=== PATIENT | female | born 1935 | race Caucasian/White ===

== ENCOUNTER 2025-01-27 00:45 | Emergency (ER) | payer OTHER ==
[~2025-01-27] VITALS: Wt 74.5 kg
[~2025-01-27 00:45] MED LIST: FUROSEMIDE20 M1 PO; LOPRESSOR50 M1 PO; MUCUS RELIEF E600 MG PO; TAMIFLU30 MG PO; VAZALORE81 MG PO; VITAMIN D31250 MCG PO
[2025-01-27] MEDS ORDERED: POTASSIUM CHLO20 ME3 PO (00:53)
[2025-01-27] MEDS ORDERED: VITAMIN C500 M6 PO (00:53)
[2025-01-27] MEDS ORDERED: MIRALAX119 GM PO (00:55)
[2025-01-27 02:00] LABS: BASO # 0.0 10*3/uL (0.0-0.1); BASO % 0.6 % (0.0-1.0); EOS # 0.1 10*3/uL (0.0-0.4); EOS % 1.1 % (1.0-4.0); MEAN CELL VOLUME 94.0 fl (81.0-99.0); MEAN CORPUSCULAR HGB 28.4 pg (27.0-31.0); MEAN PLATELET VOLUME 11.1 fl (9.6-12.3); MONO # 0.7 10*3/uL (0.1-1.0); MONO % 10.0 % (3.0-9.0); NEUT # 5.1 10*3/uL (2.3-7.9); NEUT % 72.4 % (47.0-73.0); NUCLEATED RED BLOOD CELL 0.0 % (0.0-0.0); NUCLEATED RED BLOOD CELL 0.0 10*3/uL (0.0-0.0); PLATELET COUNT AUTOMATED 213 10*3/uL (130-400); RED CELL DISTRI WIDTH 16.0 % (0-14.5)
[2025-01-27 02:44] LABS: BUN 44 mg/dl (9-23); SGPT/ALT < 7 U/L (5-49)
[2025-01-27] MEDS ORDERED: SODIUM CHLORIDE 0.9% 1,000 ML IV ONE (03:20)
[2025-01-27] MEDS ORDERED: Metoclopramide Hydrochloride 10 MG/2 ML VIAL IV ONE (03:20)
[2025-01-27 04:02] LABS: BILIRUBIN Negative (Negative); BLOOD 2+ (Negative); CLARITY Clear (Clear); COLOR Yellow (Yellow); KETONE Negative (Negative); LEUKO ESTERASE Negative (Negative); NITRITE Negative (Negative); PH 5.5 (4.5-8.0); SPECIFIC GRAVITY 1.015 (1.001-1.030); UROBILINOGEN 1.0 E.U./dl (0.0-1.0)
[2025-01-27 04:10] LABS: BACTERIA TRACE; EPITHELIAL CELLS 16-20; MUCOUS TRACE; RBC 31-40 rbc/hpf (0-2)
== END 2025-01-27 15:19 ==
LOC: ED 00:45
PROVIDERS: Emergency Medicine
DX: K29.70 Gastritis, unspecified, without bleeding (principal); R11.10 Vomiting, unspecified; I11.0 Hypertensive heart disease with heart failure; I50.9 Heart failure, unspecified; K21.9 Gastro-esophageal reflux disease without esophagitis; I48.91 Unspecified atrial fibrillation; Z79.899 Other long term (current) drug therapy; Z79.82 Long term (current) use of aspirin; Z90.710 Acquired absence of both cervix and uterus; Z90.89 Acquired absence of other organs